=== PATIENT | female | born 1935 | race Caucasian/White ===

== ENCOUNTER 2022-12-20 18:00 | Inpatient (IN) | payer MEDICARE ==
[~2022-12-20] VITALS: Ht 157.5 cm; Wt 49.9 kg
[2022-12-20] MEDS ORDERED: dexaMETHasone SOD PHOSPHATE 10 MG/ML VIAL IV ONE (19:30)
[2022-12-20] MEDS ORDERED: dexaMETHasone SOD PHOSPHATE 10 MG/ML VIAL ONE (19:33)
[2022-12-20 19:43] LABS: BASOPHILS % (AUTO) 0.4 % (0.0-2.0); EOSINOPHILS % (AUTO) 0.1 % (0.0-6.0); HEMATOCRIT 37 % (33-45); HEMOGLOBIN 12.4 g/dL (11.5-14.8); LYMPHOCYTES # (AUTO) 0.4 K/uL (0.8-4.8); LYMPHOCYTES % (AUTO) 11.8 % (20.0-44.0); MEAN CORPUSCULAR HEMOGLOBIN 32 PG (26.0-33.0); MEAN CORPUSCULAR HGB CONC 34 g/dl (31.0-36.0); MEAN CORPUSCULAR VOLUME 96 fL (82-100); MONOCYTES # (AUTO) 0.2 K/uL (0.1-1.30); MONOCYTES % (AUTO) 5.8 % (2.0-12.0); NEUTROPHILS # (AUTO) 3.1 K/uL (1.8-8.9); NEUTROPHILS % (AUTO) 81.9 % (43.0-81.0); PLATELET COUNT (AUTO) 122 K/uL (150-450); RED BLOOD CELL COUNT(AUTO) 3.84 MIL/uL (4.0-5.2); WHITE BLOOD COUNT (AUTO) 3.8 K/uL (4.3-11.0)
[2022-12-20 19:57] LABS: CALCIUM, SERUM 8.2 mg/dL (8.5-10.1); CARBON DIOXIDE 22 mmol/L (21-32); CHLORIDE 104 mmol/L (98-107); GLUCOSE 123 mg/dL (74-106); POTASSIUM 3.4 mmol/L (3.5-5.1); SODIUM SERUM 140 mmol/L (136-145); UREA NITROGEN, BLOOD 19 mg/dL (7-18)
[2022-12-20] MEDS ORDERED: ACETAMINOPHEN 650 MG/SUPP.RECT RC ONE ×2 (20:00→20:02)
[2022-12-20 20:20] LABS: ALANINE AMINOTRANSFERASE 74 U/L (12-78); ALBUMIN 3.4 g/dL (3.4-5.0); ALKALINE PHOSPHATASE 55 U/L (46-116); ASPARTATE AMINOTRANSFERASE 80 U/L (15-37); BILIRUBIN,DIRECT 0.4 mg/dL (0.0-0.2); BILIRUBIN,TOTAL 1.1 mg/dL (0.2-1.0); NT-PRO BNP 262 pg/mL (0-125)
[2022-12-20 23:30] VITALS: BP 109/70; TEMP 97.3; O2SAT 99
[2022-12-21] MEDS ORDERED: MORPHINE SULFATE INJ 4 MG/ML DISP.SYRIN IV PRN
[2022-12-21] MEDS ORDERED: ACETAMINOPHEN ES 500 MG TABLET PO PRN
[2022-12-21] MEDS ORDERED: ONDANSETRON HCL/PF 4 MG/2 ML VIAL IV PRN
[2022-12-21] MEDS ORDERED: MORPHINE SULFATE INJ 2 MG/ML DISP.SYRIN IV PRN
[2022-12-21] MEDS ORDERED: ALBUTEROL FS 2.5 MG/0.5 ML VIAL.NEB NEB PRN
[2022-12-21] MEDS: IV D5/0.45 NACL 1,000 ML IV SCH ×2 (00:46→14:51)
[2022-12-21] MEDS: ENOXAPARIN SODIUM 40 MG/0.4 ML DISP.SYRIN SQ SCH ×2 (01:01→21:15)
[2022-12-21 04:00] VITALS: BP 143/68; TEMP 97.4; O2SAT 95
[2022-12-21 06:24] LABS: BASOPHILS % (AUTO) 0.2 % (0.0-2.0); HEMATOCRIT 38 % (33-45); HEMOGLOBIN 12.8 g/dL (11.5-14.8); LYMPHOCYTES # (AUTO) 0.4 K/uL (0.8-4.8); MEAN CORPUSCULAR HEMOGLOBIN 32 PG (26.0-33.0); MEAN CORPUSCULAR HGB CONC 34 g/dl (31.0-36.0); MEAN CORPUSCULAR VOLUME 96 fL (82-100); MONOCYTES # (AUTO) 0.1 K/uL (0.1-1.30); MONOCYTES % (AUTO) 2.4 % (2.0-12.0); NEUTROPHILS # (AUTO) 4.1 K/uL (1.8-8.9); NEUTROPHILS % (AUTO) 89.4 % (43.0-81.0); PLATELET COUNT (AUTO) 112 K/uL (150-450); RED BLOOD CELL COUNT(AUTO) 3.96 MIL/uL (4.0-5.2); RED CELL DISTRIBUTION WIDTH 15.2 % (11.5-15.0); WHITE BLOOD COUNT (AUTO) 4.6 K/uL (4.3-11.0)
[2022-12-21 06:33] LABS: CALCIUM, SERUM 8.2 mg/dL (8.5-10.1); CARBON DIOXIDE 23 mmol/L (21-32); CHLORIDE 106 mmol/L (98-107); CREATININE 1.3 mg/dL (0.6-1.3); GLUCOSE 200 mg/dL (74-106); POTASSIUM 3.2 mmol/L (3.5-5.1); SODIUM SERUM 141 mmol/L (136-145); UREA NITROGEN, BLOOD 22 mg/dL (7-18)
[2022-12-21 06:51] LABS: THYROID STIMULATING HORMONE 3.256 uIU/mL (0.358-3.74)
[2022-12-21 08:00] VITALS: BP 155/98; TEMP 97.9; O2SAT 91
[2022-12-21] MEDS ORDERED: ONDA4TAB5 PO (08:25)
[2022-12-21] MEDS ORDERED: DOCU100C36 PO (08:25)
[2022-12-21] MEDS ORDERED: [UNRECOGNIZED DRUG - OTHER] PO (08:25)
[2022-12-21] MEDS ORDERED: ACET-868 PO (08:25)
[2022-12-21] MEDS ORDERED: LEVO75TA PO (08:25)
[2022-12-21] MEDS ORDERED: QUET25TA PO (08:25)
[2022-12-21] MEDS ORDERED: MENT113O TP (08:25)
[2022-12-21] MEDS ORDERED: LORA-258 PO (08:25)
[2022-12-21] MEDS ORDERED: QUETIAPINE FUMARATE 25 MG TABLET PO SCH ×2 (09:00→17:00)
[2022-12-21] MEDS ORDERED: ACETAMINOPHEN 325 MG TABLET PO PRN (09:30)
[2022-12-21] MEDS ORDERED: LEVOTHYROXINE SODIUM 75 MCG TABLET PO SCH (09:30)
[2022-12-21] MEDS ORDERED: IPRATROPIUM/ALBUTEROL INHALER IH PRN (09:30)
[2022-12-21] MEDS: dexaMETHasone SOD PHOSPHATE 10 MG/ML VIAL IV SCH (09:36)
[2022-12-21] MEDS: POTASSIUM CL. PREMIX PERIPHER. 50 ML IV SCH ×3 (09:37→13:23)
[2022-12-21] MEDS: LEVOTHYROXINE SODIUM 75 MCG TABLET PO SCH (09:37)
[2022-12-21 12:00] VITALS: BP 148/95; TEMP 98; O2SAT 95
[2022-12-21 16:00] VITALS: BP 145/99; TEMP 98; O2SAT 93
[2022-12-21] MEDS: HOME MED MISCELLANEOUS PO SCH (18:05)
[2022-12-21 20:00] VITALS: BP 145/96; TEMP 98.3; O2SAT 96
[2022-12-22] VITALS (45 sets, daily range): BP systolic 0–152; BP diastolic 8–104; TEMP 96.3–102; O2SAT 0–98
[2022-12-22] MEDS: IV D5/0.45 NACL 1,000 ML IV SCH (02:44)
[2022-12-22 06:47] LABS: BASOPHILS % (AUTO) 0.2 % (0.0-2.0); EOSINOPHILS % (AUTO) 0.1 % (0.0-6.0); HEMATOCRIT 44 % (33-45); HEMOGLOBIN 14.3 g/dL (11.5-14.8); LYMPHOCYTES # (AUTO) 0.2 K/uL (0.8-4.8); LYMPHOCYTES % (AUTO) 6.1 % (20.0-44.0); MEAN CORPUSCULAR HEMOGLOBIN 32 PG (26.0-33.0); MEAN CORPUSCULAR HGB CONC 33 g/dl (31.0-36.0); MEAN CORPUSCULAR VOLUME 98 fL (82-100); MONOCYTES # (AUTO) 0.4 K/uL (0.1-1.30); MONOCYTES % (AUTO) 9.7 % (2.0-12.0); NEUTROPHILS # (AUTO) 3.1 K/uL (1.8-8.9); NEUTROPHILS % (AUTO) 83.9 % (43.0-81.0); PLATELET COUNT (AUTO) 133 K/uL (150-450); RED BLOOD CELL COUNT(AUTO) 4.52 MIL/uL (4.0-5.2); RED CELL DISTRIBUTION WIDTH 15.9 % (11.5-15.0); WHITE BLOOD COUNT (AUTO) 3.6 K/uL (4.3-11.0)
[2022-12-22 07:31] LABS: C-REACTIVE PROTEIN 17.8 mg/dL (0.0-0.9); CHLORIDE 107 mmol/L (98-107); SODIUM SERUM 138 mmol/L (136-145)
[2022-12-22 07:32] LABS: ALANINE AMINOTRANSFERASE 53 U/L (12-78); ALBUMIN 2.5 g/dL (3.4-5.0); ALKALINE PHOSPHATASE 52 U/L (46-116); ASPARTATE AMINOTRANSFERASE 116 U/L (15-37); BILIRUBIN,TOTAL 2.1 mg/dL (0.2-1.0); CALCIUM, SERUM 8.3 mg/dL (8.5-10.1); GLUCOSE 127 mg/dL (74-106); MAGNESIUM 3.1 mg/dL (1.8-2.4); TOTAL PROTEIN, SERUM 6.5 g/dL (6.4-8.2); UREA NITROGEN, BLOOD 39 mg/dL (7-18)
[2022-12-22 08:01] LABS: CARBON DIOXIDE 10 mmol/L (21-32)
[2022-12-22] MEDS: HOME MED MISCELLANEOUS PO SCH ×2 (08:13→16:51)
[2022-12-22] MEDS: dexaMETHasone SOD PHOSPHATE 10 MG/ML VIAL IV SCH ×3 (08:17→16:50)
[2022-12-22] MEDS: LEVOTHYROXINE SODIUM 75 MCG TABLET PO SCH (08:17)
[2022-12-22] MEDS: CLOTRIMAZOLE 1% 15 GM TUBE TP SCH ×2 (08:18→16:55)
[2022-12-22] MEDS ORDERED: ZNOX TP SCH (09:00)
[2022-12-22] MEDS ORDERED: QUETIAPINE FUMARATE 25 MG TABLET PO SCH (09:00)
[2022-12-22] MEDS ORDERED: CALAMINE TP SCH (09:00)
[2022-12-22] MEDS ORDERED: LANOLIN TP SCH (09:00)
[2022-12-22] MEDS ORDERED: DOCUSATE SODIUM 100 MG CAPSULE PO SCH (09:00)
[2022-12-22] MEDS ORDERED: [UNRECOGNIZED DRUG - OTHER] TP SCH (09:00)
[2022-12-22] MEDS ORDERED: MENTHOL TP SCH (09:00)
[2022-12-22] MEDS ORDERED: REMDESIVIR (CHARGED) 200 MG, *LOADING DOSE 1 EA in IV NS 0.9% 210 ML IV ONE (09:00)
[2022-12-22] MEDS ORDERED: NOREPINEPHRINE 8 MG in IV NS 0.9% 242 ML IV PRN (09:30)
[2022-12-22] MEDS ORDERED: IV NS 0.9% 250 ML IV ONE (09:30)
[2022-12-22] MEDS ORDERED: IV NS 0.9% 500 ML IV ONE (10:00)
[2022-12-22] MEDS ORDERED: ALBUMIN 25% 12.5 GM/50 ML BOTTLE IV ONE (10:00)
[2022-12-22] MEDS ORDERED: Sodium Bicarbonate 150 MEQ in IV NS 0.9% 1,000 ML IV SCH (11:00)
[2022-12-22] MEDS: EPINEPHRINE (1:1000) 5 MG in IV NS 0.9% 250 ML IV PRN ×2 (11:26→14:02)
[2022-12-22] MEDS ORDERED: EPINEPHRINE (1:10,000) SYRINGE 1 MG/10 ML DISP.SYRIN IVP ONE (11:51)
[2022-12-22] MEDS ORDERED: SODIUM BICARBONATE SYR 50 MEQ/50 ML DISP.SYRIN IV ONE (11:52)
[2022-12-22] MEDS ORDERED: ETOMIDATE 2 MG/ML VIAL IV ONE (11:53)
[2022-12-22] MEDS ORDERED: ROCURONIUM BROMIDE 50 MG/5 ML IV ONE ×2 (11:53→11:54)
[2022-12-22] MEDS ORDERED: PIPERACILLIN /TAZOBACTAM 3.375 G in IV D5W 50 ML IV SCH (12:00)
[2022-12-22] MEDS ORDERED: VANCOMYCIN 1.25 GM in IV D5W 250 ML IV ONE (12:00)
[2022-12-22 12:15] LABS: LACTIC ACID 10.4 mmol/L (0.4-2.0)
[2022-12-22] MEDS ORDERED: PHENYLEPHRINE 100 MG in IV NS 0.9% 240 ML IV PRN ×3 (12:30→18:30)
[2022-12-22] MEDS: NOREPINEPHRINE 32 MG in IV NS 0.9% 218 ML IV PRN ×2 (12:41→14:03)
[2022-12-22] MEDS: ZOSYN IVPB 2.25 G in IV D5W 50ml IV SCH ×2 (13:41→17:00)
[2022-12-22 13:42] LABS: ABG BASE EXCESS -10.8 mmol/L; ABG OXYGEN SATURATION 96.2 % (92.0-98.5); ABG PCO2 19.1 mmHg (35.0-45.0); ABG PH 7.394 (7.350-7.450); ABG PO2 87.9 mmHg (75.0-100.0); ABG TOTAL HEMOGLOBIN 14.8 G/dL (12.0-16.0); COHb 0.1 % (0.5-1.5); MetHb 0.2 % (0.0-1.5); O2Hb 95.9 % (94.0-97.0); SITE, ABG Right Radial; VENT MODE, BG HFNC 40LPM 100% + NRB
[2022-12-22 13:42] LABS: ABG BASE EXCESS -9.6 mmol/L; ABG OXYGEN SATURATION 92.5 % (92.0-98.5); ABG PCO2 33.6 mmHg (35.0-45.0); ABG PH 7.293 (7.350-7.450); ABG PO2 75.1 mmHg (75.0-100.0); ABG TOTAL HEMOGLOBIN 12.7 G/dL (12.0-16.0); AaDO2 604.3 mmHg; COHb 0.2 % (0.5-1.5); MetHb 0.3 % (0.0-1.5); SITE, ABG Right Radial; VENT MODE, BG AC 28 450 100%+5
[2022-12-22] MEDS ORDERED: ALBUMIN 25% 25 GM in PREMIX 1 EA IV ONE (14:30)
[2022-12-22] MEDS ORDERED: ALBUMIN 5% 25 GM in PREMIX 1 EA IV ONE (14:30)
[2022-12-22] MEDS ORDERED: LEVOTHYROXINE INJ 100 MCG VIAL IV SCH (14:34)
[2022-12-22 16:00] LABS: APPEARANCE,URINE CLEAR (CLEAR); BILIRUBIN,URINE 1+ (NEGATIVE); BLOOD, URINE NEGATIVE Ery/uL (NEGATIVE); KETONES,URINE NEGATIVE (NEGATIVE); LEUKOCYTE ESTERASE ,URINE NEGATIVE (NEGATIVE); NITRITE, URINE POSITIVE (NEGATIVE); PH,URINE 6.5 (5.0-8.0); PROTEIN,URINE 1+ mg/dl (NEGATIVE); UGLUCOSE NEGATIVE (NEGATIVE)
[2022-12-22 16:02] LABS: COLOR,URINE DARK YELLOW (YELLOW)
[2022-12-22 16:13] LABS: ADD URINE CULTURE YES; BACTERIA,URINE 1+ /HPF (None Seen); RBC,URINE 0-2 /HPF (0-2); WBC,URINE 0-2 /HPF (0-3)
[2022-12-22 16:14] LABS: MUCUS,URINE Few /LPF (None Seen)
[2022-12-22] MEDS ORDERED: IV D5/ 0.9% NACL 1,000 ML IV PRN (20:00)
[2022-12-22] MEDS ORDERED: DC PROPOFOL WHEN EXTUBATED XX PRN (20:19)
[2022-12-22] MEDS ORDERED: MORPHINE SULFATE PF DRIP 250 MG in IV D5W 240 ML IV PRN (20:30)
[2022-12-22] MEDS ORDERED: ONDANSETRON HCL/PF 4 MG/2 ML VIAL IV PRN (20:30)
[2022-12-22] MEDS ORDERED: LORAZEPAM INJ 2 MG/ML VIAL IV PRN (20:30)
[2022-12-22] MEDS ORDERED: HEPARIN SODIUM, PORCINE 5000 UNITS/1 ML VIAL SQ SCH (21:00)
[2022-12-23] MEDS ORDERED: LEVOTHYROXINE INJ 100 MCG VIAL IV SCH (07:30)
[2022-12-23] MEDS ORDERED: REMDESIVIR (CHARGED) 100 MG in IV NS 0.9% 230 ML IV SCH (09:00)
[2022-12-23] MEDS ORDERED: VANCOMYCIN 500 MG in IV D5W 100 ML IV SCH (12:00)
== END 2022-12-22 22:27 | DRG 871 ==
LOC: ER 18:06 → TELE1 22:10 → ICU 12-22 08:47
PROVIDERS: ADMIT Internal Medicine; ATTEND Internal Medicine
PROC: 5A1935Z Respiratory Ventilation, Less than 24 Consecutive Hours (ICD-10-PCS; principal; 2022-12-22)
PROC: 0BH17EZ Insertion of Endotracheal Airway into Trachea, Via Natural or Artificial Opening (ICD-10-PCS; 2022-12-22)
PROC: 5A2204Z Restoration of Cardiac Rhythm, Single (ICD-10-PCS; 2022-12-22)
PROC: XW033E5 Introduction of Remdesivir Anti-infective into Peripheral Vein, Percutaneous Approach, New Technology Group 5 (ICD-10-PCS; 2022-12-22)
DX: A41.89 Other specified sepsis (principal); G92.8 Other toxic encephalopathy; U07.1 COVID-19; J96.01 Acute respiratory failure with hypoxia; N17.0 Acute kidney failure with tubular necrosis; J12.82 Pneumonia due to coronavirus disease 2019; J15.9 Unspecified bacterial pneumonia; J69.0 Pneumonitis due to inhalation of food and vomit; R65.21 Severe sepsis with septic shock; F02.84 Dementia in other diseases classified elsewhere, unspecified severity, with anxiety; J98.11 Atelectasis; E87.20 Acidosis, unspecified; G30.9 Alzheimer's disease, unspecified; F41.9 Anxiety disorder, unspecified; Z66 Do not resuscitate; Z51.5 Encounter for palliative care; Z79.890 Hormone replacement therapy; Z79.899 Other long term (current) drug therapy; Y95 Nosocomial condition; R94.5 Abnormal results of liver function studies; E86.0 Dehydration; E03.9 Hypothyroidism, unspecified; E87.6 Hypokalemia; D69.6 Thrombocytopenia, unspecified; Z85.850 Personal history of malignant neoplasm of thyroid
CPT/HCPCS: 36415; 36569; 36600; 71045-TC; 74018; 80048-TC; 80053-TC; 80076-TC; 81001; 82962-TC; 83605-TC; 83735-TC; 83880; 84443-TC; 84484-TC; 85025-TC; 85378-TC; 86140-TC; 87086-TC; 92526; 92611-TC; 93970-TC; 94799-TC; A4216; A4223; C9803; G0378; J0171; J1100; J1650; J2060; J2270; J2274; J2370; J2543; J3370; J3480; J3490; J7030; J7040; J7050; J7060; P9045; P9047